=== PATIENT | male | born 1995 | race Caucasian/White ===

== ENCOUNTER → 2016-04-22 | Emergency (ER) | payer OTHER ==
[~2016-04-22] MED LIST: HYDROCOD/APAP 5/325 PREPACK#6 BTL TAKEHOME ONE
[2016-04-22 17:44] VITALS: RESP 16; TEMP 98.2; O2SAT 96
--- NOTE | 2016-04-22 18:50 | DX ---
Right shoulder, 3 views. History: Pain after snowboarding injury. Findings: Normal mineralization and alignment. No evidence for acute fracture or dislocation. No sign ificant joint narrowing, periarticular erosion, periarticular spurring. Impression: Normal radiograph right shoulder.
--- NOTE | 2016-04-22 18:51 | EDPHY ---
HPI/HX/ROS/PE/MDM Narrative: CHIEF COMPLAINT: Right shoulder injury HPI: The patient is a 20-year-old male with no significant past medical history. Earlier today, the patient was snowboarding when he sustained blunt force injury to the lateral aspect of his right shoulder. He denies injury to his head, neck or other body parts. Complains of pain over the AC joint especially with movement of the arm. He denies numbness, weakness or tingling. He did not lose consciousness. REVIEW OF SYSTEMS: Aside from elements discussed in the HPI, a comprehensive 10-point review of systems was reviewed and is negative. PMH: None significant. SOCIAL HISTORY: Works at a coffee shop. Denies drug abuse. PHYSICAL EXAM: General:Patient is alert, in no acute distress. Neck: Normal inspection. Full range of motion. Respiratory:No respiratory distress. Breath sounds normal bilaterally. Abdomen:The abdomen is nontender to palpation. There are no peritoneal signs. There are normal bowel sounds. Back: Normal to inspection. No tenderness to palpation. Skin: Normal color. No rash. Warm and dry. Extremities: Tenderness to palpation is present over the right AC joint. There is no scapular deformity. The skin is intact. No AC step-off. Light touch sensation and motor function is preserved in the axillary, median, radial and ulnar nerve distributions. There is a 2+ radial pulse with brisk cap refill. Neuro: Oriented x3. Normal motor function. Normal sensory function. ED Course: X-ray of the right shoulder viewed and interpreted by me. There is widening at the AC joint. No fracture seen. MDM: This patient presents with blunt force injury to his lateral shoulder. X-ray suggests an AC separation. There is no evidence of neurovascular or chest wall trauma. Patient will be placed in a sling and given orthopedic referral. We discussed strict return precautions. - Data Points Medications Given: Discontinued Medications Acetaminophen/Hydrocodone Bitart ([place] 5/325mg Prepack#6) 1 btl TAKEHOME EDNOW ONE Stop: 04/22/16 18:52 Last Admin: 04/22/16 18:59 Dose: 1 btl General Time Seen by Provider: 04/22/16 17:56 Initial Vital Signs: Initial Vital Signs Temperature (C) 36.8 C 04/22/16 17:40 Heart Rate 74 04/22/16 17:40 Respiratory Rate 16 04/22/16 17:40 Blood Pressure 109/73 04/22/16 17:40 O2 Sat (%) 96 04/22/16 17:40 O2 Delivery Mode Room Air Allergies/Adverse Reactions: No Known Allergies Allergy (Unverified 04/22/16 17:44) Home Medications: Medication Instructions Recorded NK [No Known Home Meds] 04/22/16 Departure - Departure Disposition: Home, Routine, Self-Care Clinical Impression: Shoulder separation Qualifiers: Encounter type: initial encounter Laterality: right Qualifier Code: (S43.004A) Unspecified dislocation of right shoulder joint, initial encounter Condition: Good Instructions: Acromioclavicular Separation (ED) Additional Instructions: Rest, ice, elevation. Follow up with an orthopedic surgeon within one week. Return to the emergency department for worsening pain, swelling, numbness, weakness or other concerns. Wear sling for comfort, activity as tolerated. Referrals: NONE *PRIMARY CARE P,. [Primary Care Provider] - As per Instructions Kingsley Larsen MD [Medical Doctor] - As per Instructions Stand Alone Forms: Work Limited Duty, Work Excuse
[2016-04-22 19:18] VITALS: BP 115/67; PULSE 78
== END | disposition home or self-care (01) ==
DX: S43.004A Unspecified dislocation of right shoulder joint, initial encounter (principal); V00.311A Fall from snowboard, initial encounter; Y99.8 Other external cause status; Y93.23 Activity, snow (alpine) (downhill) skiing, snowboarding, sledding, tobogganing and snow tubing

== ENCOUNTER 2016-04-24 13:43 | Emergency (ER) | payer OTHER ==
[2016-04-24 13:51] VITALS: BP 103/82; PULSE 65; RESP 17; TEMP 98.2; O2SAT 97
--- NOTE | 2016-04-24 14:22 | EDPHY ---
H & P Stated Complaint: r ac separation sat having numbness in r hand Time Seen by Provider: 04/24/16 14:22 HPI/ROS: CHIEF COMPLAINT: Numbness in a right ulnar nerve distribution HISTORY OF PRESENT ILLNESS: The patient presents to the emergency department with complaints of numbness in a right ulnar nerve distribution. The patient was seen in the ED several days ago and diagnosed with an AC sprain and has been wearing a shoulder splint since that time. Over the morning he has developed some numbness in his right 5th finger and the ulnar aspect of his right 4th finger. He presents to the ED for evaluation. The patient denies new injury. He has no complaints of weakness. He denies additional complaints. REVIEW OF SYSTEMS: A comprehensive 10 point review of systems is otherwise negative aside from elements mentioned in the history of present illness. Source: Patient Exam Limitations: No limitations - Personal History Current Tetanus/Diphtheria Vaccine: Yes - Medical/Surgical History Hx Asthma: No Hx Chronic Respiratory Disease: No Hx Diabetes: No Hx Cardiac Disease: No Hx Renal Disease: No Hx Cirrhosis: No Hx Alcoholism: No Hx HIV/AIDS: No Hx Splenectomy or Spleen Trauma: No Other PMH: healthy - Social History Smoking Status: Current some day smoker - Physical Exam Exam: General Appearance: Alert, no distress Neck: No midline tenderness Skin: No lacerations, No abrasion Extremities: Nontender, full range of motion Neurological: Sensation decreased to light touch along the ulnar nerve in the right hand Constitutional: Initial Vital Signs Temperature (C) 36.8 C 04/24/16 13:48 Heart Rate 65 04/24/16 13:48 Respiratory Rate 17 04/24/16 13:48 Blood Pressure 103/82 H 04/24/16 13:48 O2 Sat (%) 97 04/24/16 13:48 O2 Delivery Mode Room Air Allergies/Adverse Reactions: No Known Allergies Allergy (Verified 04/24/16 13:47) Home Medications: Medication Instructions Recorded NK [No Known Home Meds] 04/22/16 Medical Decision Making ED Course/Re-evaluation: The patient presents to the emergency department with ulnar neurapraxia likely from wearing a sling. At this point time I do feel that he can stop wearing the sling as he only has a grade 1 AC injury. Patient is scheduled to follow up with Orthopedic surgery next week. I feel it is reasonable to continue conservative management of that point time. I doubt he has a injury to his brachial plexus or more significant peripheral neuropathy at this point time. The patient has been instructed I suspect his symptoms should resolve. Should they not, he will need further workup by the orthopedic surgeon and/or Neurology for further evaluation. Departure - Departure Disposition: Home, Routine, Self-Care Clinical Impression: Shoulder separation, Ulnar neuropathy Condition: Good Instructions: Neurapraxia (ED) Additional Instructions: 1. Please stay out of the shoulder sling as it likely is causing some compression of your ulnar nerve resulting in some numbness in your 5th and 4th fingers. 2. Please follow up with the orthopedic surgeon you have been referred to. Please contact their office tomorrow if your continuing to experience numbness in your hand to move up your follow-up appointment date. 3. Begin gentle range of motion as allowed by your pain.
== END 2016-04-24 14:40 | disposition home or self-care (01) ==
DX: S43.004D Unspecified dislocation of right shoulder joint, subsequent encounter (principal); G56.21 Lesion of ulnar nerve, right upper limb; F17.200 Nicotine dependence, unspecified, uncomplicated; X58.XXXD Exposure to other specified factors, subsequent encounter

== ENCOUNTER → 2016-11-19 | Outpatient (CLI) | payer OTHER | LOC: FIMAGING 07:57 | PROVIDERS: ATTEND Orthopaedic Surgery | DX: M25.562 Pain in left knee (principal); R60.0 Localized edema ==